=== PATIENT | male | born 1960 | race American Indian/Alaskan Native ===

== ENCOUNTER 2018-11-27 10:52 | Outpatient (CLI) | payer BC ==
--- NOTE | 2018-11-27 15:41 | Cat Scan Report ---
CT ABDOMEN AND PELVIS WITHOUT CONTRAST: 11/27/18 10:52:00 CLINICAL:Newly diagnosed prostate cancer. TECHNIQUE: Volumetric acquisition and 1.25 millimeter scan reconstructions from the lung bases through the pelvis. The study was performed with oral contrast. FINDINGS: Abdomen:A noncalcified 1 cm right lower lobe pleural-based lung nodule is identified on the uppermost slice and is partially included on the scan. No other lung nodules are identified. Normal liver, bile ducts and gallbladder. Normal stomach, duodenum, pancreas and spleen. Normal adrenal glands and kidneys. The renal collecting systems and ureters demonstrate physiologic dilatation. No ascites. The imaged portions of small bowel and colon are normal. Normal surgical anastomoses of the right colon and no appendix identified. Pelvis: The prostate is massively enlarged and extends into the bladder floor. It measures approximately 8.5 cm craniocaudal dimension by 9.6 cm AP dimension by 8.5 cm transverse dimension. The seminal vesicles are enlarged and bland with the enlarged prostate. Moderate thickening of the urinary bladder wall. A heterogeneously dense right internal iliac lymph node measures 4.7 x 3.7 cm. A heterogeneously dense left internal iliac lymph node measures 4.2 x 4.1 cm. These lymph nodes are located just distal to the bifurcation of the iliac artery. Minimally enlarged bilateral inguinal lymph nodes. The largest on the left measures 1.5 cm. Bone windows demonstrate several highly suspicious bone lesions. The largest is a mixed lytic and sclerotic lesion involving the left iliac bone at the posterior aspect of the SI joint. A similar lesion of the right iliac bone at the same level and a similar lesion of the left ischium. Suspicious mixed lytic and sclerotic lesions of L2 and T12 vertebral bodies. IMPRESSION: 1. A 1 cm right lower lobe lung nodule is suspicious for a metastasis. 2. Massively enlarged prostate with invasion of the bladder floor and seminal vesicles. 3. Bilateral internal iliac nikky metastasis with bilateral 4 cm lymph nodes. 4. Skeletal metastases involving bilateral iliac bones, the left ischium and T12 and L2 vertebra. 5. No hydronephrosis. 6. Status post right partial colectomy and appendectomy with normal anastomoses.
--- NOTE | 2018-11-27 15:45 | Nuclear Medicine Report ---
NUCLEAR MEDICINE WHOLE-BODY BONE SCAN: 11/27/18 11:00:00 CLINICAL: Newly diagnosed prostate cancer. COMPARISON: A same-day CT abdomen and pelvis. TECHNIQUE: 25 millicuries technetium 99m MDP was injected intravenously and scans were obtained at 3 hours. The patient was extremely claustrophobic and would not tolerate whole body imaging. Segmented body scans were obtained from the level of the clavicles through the pelvis. The skull was not imaged. FINDINGS: Abnormal focal uptake in the left pelvis correlates with a metastatic lesion identified on the CT. Suspicious focal uptake in the midthoracic spine and at L2. IMPRESSION: Skeletal metastasis involving the left pelvis, thoracic spine and lumbar spine.
== END 2018-11-27 10:53 | disposition home or self-care (01) ==
LOC: NM 10:52
PROVIDERS: ATTEND Urology
DX: C77.5 Secondary and unspecified malignant neoplasm of intrapelvic lymph nodes (principal); C79.51 Secondary malignant neoplasm of bone; C61 Malignant neoplasm of prostate
CPT/HCPCS: 74176; 78306; A9503